=== PATIENT | male | born 1950 | race Caucasian/White ===

== ENCOUNTER → 2016-06-08 | Outpatient (CLI) | payer MEDICARE, OTHER | LOC: MRI 09:45 | DX: R10.11 Right upper quadrant pain (principal); Z53.9 Procedure and treatment not carried out, unspecified reason | CPT/HCPCS: 36415; 82565; 84520 ==

== ENCOUNTER → 2016-06-29 | Outpatient (CLI) | payer MEDICARE, OTHER | LOC: CT 06-19 14:00 | DX: R10.11 Right upper quadrant pain (principal); D18.03 Hemangioma of intra-abdominal structures | CPT/HCPCS: 74170; J7050; Q9962 ==